=== PATIENT | male | born 1955 | race Caucasian/White ===

== ENCOUNTER 2017-08-18 00:37 | Emergency (ER) | payer MEDICAID ==
[2017-08-18 00:44] VITALS: BP 124/83
== END 2017-08-18 02:44 ==
LOC: ED 00:37
DX: R06.00 Dyspnea, unspecified (principal); Z53.21 Procedure and treatment not carried out due to patient leaving prior to being seen by health care provider

== ENCOUNTER 2017-10-26 08:35 | Outpatient (CLI) | payer MEDICAID ==
--- NOTE | 2017-10-26 10:33 | XRay Report ---
LEFT KNEE RADIOGRAPHS INDICATION: Left knee pain. COMPARISON: None similar. FINDINGS: AP, lateral and oblique left knee radiographs demonstrate intact articulation. Slight tibial spines and superior patellar articular pole spurring. Small suprapatellar effusion may also be present. CONCLUSION: Findings, as above. Please correlate. Thank you for the opportunity to participate in this patient's care.
--- NOTE | 2017-10-26 10:38 | XRay Report ---
CERVICAL SPINE RADIOGRAPHS INDICATION: Cervicalgia. COMPARISON: None similar. FINDINGS: AP, lateral and open-mouth views of the cervical spine, 3 images demonstrate dens superiorly obscured by overlying skull. Grossly symmetric lateral masses. Multiple radiopaque dental fillings. Demineralized bones. Clear imaged lung apices. Grossly intact craniocervical articulation on the lateral view with normal prevertebral soft tissues and airway. Visualization upto T1. Degenerative spurring noted from C4 inferiorly, greatest involving C5-C7. Moderate to severe C5-C6 and C6-C7 disc narrowing. Remainder disc heights and alignment grossly preserved. CONCLUSION: Cervical spondylosis, advanced from C5-C7 with few other findings, as above. Please correlate. Thank you for the opportunity to participate in this patient's care.
== END 2017-10-26 08:36 | disposition home or self-care (01) ==
LOC: XRAY 08:35
PROVIDERS: ATTEND Physical Medicine & Rehabilitation
DX: M47.892 Other spondylosis, cervical region (principal); M25.562 Pain in left knee; M25.462 Effusion, left knee; F17.210 Nicotine dependence, cigarettes, uncomplicated
CPT/HCPCS: 72040

== ENCOUNTER 2019-09-19 15:03 | Emergency (ER) | payer MEDICAID ==
[2019-09-19 15:10] VITALS: BP 139/67
[2019-09-19] MEDS ORDERED: HYDROcodone/ACETAMINOPHEN 5-325 MG TAB PO ONE (17:04)
[2019-09-19] MEDS ORDERED: CLINDAMYCIN 300 MG CAP PO ONE (17:04)
--- NOTE | 2019-09-19 17:20 | Emergency Department Report ---
Abscess Boil HPI - HPI Chief Complaint: Skin/Abscess/Foreign Body Stated Complaint: RT SIDE BITE Time Seen by Provider: 09/19/19 16:52 Duration: >1 Week Location: Chest Severity: Mild History: Yes Pain, No Fever, No Purulent Drainage, No Numbness, No Foreign Body, No Previous History, No Insect Bite (Unsure, possible) HPI: This 63-year-old male who presents the ED complaining of right-sided redness and swelling to his side of his chest for the past week. Patient states that he is noticed that is gotten bigger and redder in the past couple days. Patient states he is unsure if he got bit by something. Patient denies fever/chills/nausea vomiting Home Medications: Home Medications Medication Instructions Recorded Confirmed Last Taken Oxycodone HCl/Acetaminophen 1 tab PO Q6HR PRN 01/24/16 01/24/16 Unknown [OxyCODONE-Acetaminophen 10-325] Tizanidine HCl 1 tab PO DAILY 01/24/16 01/24/16 Unknown Previous Rx's Medication Instructions Recorded Last Taken Type traMADoL [Ultram] 50 mg PO Q6HR PRN #20 tablet 01/24/16 Unknown Rx Acetaminophen/Codeine [Tylenol 1 tab PO Q6H PRN #10 tab 09/19/19 Unknown Rx /Codeine # 3 tab] Clindamycin [Clindamycin CAP] 300 mg PO Q8H #21 cap 09/19/19 Unknown Rx Ibuprofen [Motrin 800 MG tab] 800 mg PO Q8HR PRN #30 tablet 09/19/19 Unknown Rx Sulfamethoxazole/Trimethoprim 1 each PO BID #20 tablet 09/19/19 Unknown Rx [Bactrim DS TAB] Allergies/Adverse Reactions: Allergies Allergy/AdvReac Type Severity Reaction Status Date / Time No Known Allergies Allergy Verified 04/10/15 13:15 ED Review of Systems ROS: Stated complaint: RT SIDE BITE Other details as noted in HPI Comment: All other systems reviewed and negative ED Past Medical Hx - Past Medical History Previous Medical History?: No Additional medical history: Chronic back pain - Surgical History Past Surgical History?: No Additional Surgical History: SUKI, Laser back surgery - Social History Smoking Status: Current Every Day Smoker Substance Use Type: None - Medications Home Medications: Home Medications Medication Instructions Recorded Confirmed Last Taken Type Oxycodone HCl/Acetaminophen 1 tab PO Q6HR PRN 01/24/16 01/24/16 Unknown History [OxyCODONE-Acetaminophen 10-325] Tizanidine HCl 1 tab PO DAILY 01/24/16 01/24/16 Unknown History traMADoL [Ultram] 50 mg PO Q6HR PRN #20 tablet 01/24/16 Unknown Rx Acetaminophen/Codeine [Tylenol 1 tab PO Q6H PRN #10 tab 09/19/19 Unknown Rx /Codeine # 3 tab] Clindamycin [Clindamycin CAP] 300 mg PO Q8H #21 cap 09/19/19 Unknown Rx Ibuprofen [Motrin 800 MG tab] 800 mg PO Q8HR PRN #30 tablet 09/19/19 Unknown Rx Sulfamethoxazole/Trimethoprim 1 each PO BID #20 tablet 09/19/19 Unknown Rx [Bactrim DS TAB] ED Abscess Boil Physical Exam - Exam General: Vital signs noted. No distress. Alert and acting appropriately. Size: 5 cm Exam: Yes Tenderness, Yes Surrounding Cellulites/Erythema, No Fluctuance, No Lymphangitis, No Crepitation, No Heart Murmur, No Normal Neurologic Exam, No Normal Circulation Exam: Area of erythema to the right lateral chest under the right arm about 10 cm from the armpit. I & D Note - I & D Note I & D Note: Not applicable. ED Course Vital Signs 09/19/19 15:08 Temperature 98 F Pulse Rate 85 Respiratory 18 Rate Blood Pressure 139/67 O2 Sat by Pulse 96 Oximetry Critical care attestation.: If time is entered above; I have spent that time in minutes in the direct care of this critically ill patient, excluding procedure time. ED Medical Decision Making - Medical Decision Making 64-year-old male who presents with cellulitis of the thorax wall Discussed warm compress 3 times a day Discussed antibiotic therapy Discussed pain medication as needed for pain and follow-up with primary care physician in 3 to 4 days. Vital signs are normal patient is in no acute distress I discussed with patient if symptoms worsen or new symptoms arise to return to ED immediately. ED Disposition Clinical Impression: Cellulitis of chest wall Disposition: DC-01 TO HOME OR SELFCARE Is pt being admited?: No Does the pt Need Aspirin: No Condition: Stable Instructions: Cellulitis (ED), Abscess (ED) Additional Instructions: Make sure to follow up with the primary care physician as discussed. Take all your medications as you've been prescribed. If you have any worsening symptoms or develop new symptoms please return to ED immediately. Prescriptions: Sulfamethoxazole/Trimethoprim [Bactrim DS TAB] 1 each PO BID #20 tablet Clindamycin [Clindamycin CAP] 300 mg PO Q8H #21 cap Ibuprofen [Motrin 800 MG tab] 800 mg PO Q8HR PRN #30 tablet PRN Reason: Pain Acetaminophen/Codeine [Tylenol /Codeine # 3 tab] 1 tab PO Q6H PRN #10 tab PRN Reason: Pain Referrals: AYDEN KOTHARI MD [Primary Care Provider] - 3-5 Days Forms: Accompanied Note, Work/School Release Form(ED) Time of Disposition: 17:55
== END 2019-09-19 18:06 | disposition home or self-care (01) ==
LOC: ED 15:03
DX: L03.313 Cellulitis of chest wall (principal); F17.200 Nicotine dependence, unspecified, uncomplicated; Z79.899 Other long term (current) drug therapy
CPT/HCPCS: 99282

== ENCOUNTER 2020-02-09 08:13 | Emergency (ER) | payer MEDICAID ==
[2020-02-09 08:20] VITALS: BP 129/83
[2020-02-09] MEDS ORDERED: oxyCODONE /ACETAMINOPHEN 5-325MG TAB PO ONE (11:08)
[2020-02-09] MEDS ORDERED: LIDOCAINE (1%) 10 MG/1 ML VIAL 20 ML MDV INFILTRATI ONE (11:08)
--- NOTE | 2020-02-09 11:10 | Emergency Department Report ---
ED General Adult HPI - General Chief complaint: Skin/Abscess/Foreign Body Stated complaint: SPIDER BITE/RT LEG Time Seen by Provider: 02/09/20 10:26 Source: patient Mode of arrival: Ambulatory Limitations: No Limitations - History of Present Illness Initial comments: 64-year-old male presents with complaints of right lower leg pain due to a spider bite x 3 days. Patient states he did feel something bite him when he was mowing the line and the area became itchy. He states redness developed later that day and the area has been painful since. He rates his pain as a 10/10 in severity and denies any fever/chills/sweats, numbness/tingling/weakness to his leg, or difficulty moving his leg. - Related Data Home Medications Medication Instructions Recorded Confirmed Last Taken Oxycodone HCl/Acetaminophen 1 tab PO Q6HR PRN 01/24/16 01/24/16 Unknown [OxyCODONE-Acetaminophen 10-325] Tizanidine HCl 1 tab PO DAILY 01/24/16 01/24/16 Unknown Previous Rx's Medication Instructions Recorded Last Taken Type traMADoL [Ultram] 50 mg PO Q6HR PRN #20 tablet 01/24/16 Unknown Rx Acetaminophen/Codeine [Tylenol 1 tab PO Q6H PRN #10 tab 09/19/19 Unknown Rx /Codeine # 3 tab] Sulfamethoxazole/Trimethoprim 1 each PO BID #20 tablet 09/19/19 Unknown Rx [Bactrim DS TAB] Acetaminophen/Codeine [Tylenol 1 tab PO Q6H PRN #8 tab 02/09/20 Unknown Rx /Codeine # 3 tab] Clindamycin [Clindamycin CAP] 300 mg PO Q6H 10 Days #40 cap 02/09/20 Unknown Rx Ibuprofen [Motrin 800 MG tab] 800 mg PO Q8HR PRN #21 tablet 02/09/20 Unknown Rx Mupirocin [Bactroban 2% OINT] 1 applic TP TID 7 Days #1 tube 02/09/20 Unknown Rx Allergies Allergy/AdvReac Type Severity Reaction Status Date / Time No Known Allergies Allergy Verified 04/10/15 13:15 ED Review of Systems ROS: Stated complaint: SPIDER BITE/RT LEG Other details as noted in HPI Constitutional: denies: chills, diaphoresis, fever, malaise, weakness ENT: denies: ear pain Respiratory: denies: shortness of breath Gastrointestinal: denies: nausea, vomiting Musculoskeletal: denies: joint swelling Skin: rash, lesions Neurological: denies: headache Hematological/Lymphatic: denies: swollen glands ED Past Medical Hx - Past Medical History Previous Medical History?: No Additional medical history: Chronic back pain - Surgical History Past Surgical History?: Yes Additional Surgical History: SUKI, Laser back surgery - Social History Smoking Status: Current Every Day Smoker Substance Use Type: None - Medications Home Medications: Home Medications Medication Instructions Recorded Confirmed Last Taken Type Oxycodone HCl/Acetaminophen 1 tab PO Q6HR PRN 01/24/16 01/24/16 Unknown History [OxyCODONE-Acetaminophen 10-325] Tizanidine HCl 1 tab PO DAILY 01/24/16 01/24/16 Unknown History traMADoL [Ultram] 50 mg PO Q6HR PRN #20 tablet 01/24/16 Unknown Rx Acetaminophen/Codeine [Tylenol 1 tab PO Q6H PRN #10 tab 09/19/19 Unknown Rx /Codeine # 3 tab] Sulfamethoxazole/Trimethoprim 1 each PO BID #20 tablet 09/19/19 Unknown Rx [Bactrim DS TAB] Acetaminophen/Codeine [Tylenol 1 tab PO Q6H PRN #8 tab 02/09/20 Unknown Rx /Codeine # 3 tab] Clindamycin [Clindamycin CAP] 300 mg PO Q6H 10 Days #40 cap 02/09/20 Unknown Rx Ibuprofen [Motrin 800 MG tab] 800 mg PO Q8HR PRN #21 tablet 02/09/20 Unknown Rx Mupirocin [Bactroban 2% OINT] 1 applic TP TID 7 Days #1 tube 02/09/20 Unknown Rx ED Physical Exam - General Limitations: No Limitations General appearance: alert, in no apparent distress - Head Head exam: Present: atraumatic, normocephalic - Eye Eye exam: Present: normal appearance - ENT ENT exam: Present: mucous membranes moist - Respiratory Respiratory exam: Absent: respiratory distress - Cardiovascular Cardiovascular Exam: Present: regular rate, normal rhythm - Extremities Exam Extremities exam: Present: full ROM, other (Round 4 cm area of erythema noted with central scabbing and lesion with minimal purulent drainage noted; area is tender to palpation) - Neurological Exam Neurological exam: Present: alert, oriented X3, normal gait. Absent: motor sensory deficit - Psychiatric Psychiatric exam: Present: normal affect, normal mood - Skin Skin exam: Present: warm, dry, erythema ED Course Vital Signs 02/09/20 02/09/20 08:19 10:47 Temperature 99.3 F Pulse Rate 105 H 76 Respiratory 18 16 Rate Blood Pressure 129/83 O2 Sat by Pulse 99 97 Oximetry - I & D Leg Type of Procedure: Simple Site: Right lower leg Blade Size: 11 I & D Procedure: betadine prep, sterile drapes applied, sterile dressing applied Progress: 8 cc of lidocaine 1% without epinephrine used to anesthetize area. Minimal bleeding occurred. Mild to moderate purulent drainage was obtained from wound and sent for culture. Patient tolerated procedure well without any immediate complications. ED Medical Decision Making - Medical Decision Making 64-year-old male presents with complaints of right lower leg pain due to a spider bite x 3 days. Patient states he did feel something bite him when he was mowing the line and the area became itchy. He states redness developed later that day and the area has been painful since. He rates his pain as a 10/10 in severity and denies any fever/chills/sweats, numbness/tingling/weakness to his leg, or difficulty moving his leg. Incision and drainage performed. Sample sent for wound culture. Patient given 1 dose of clindamycin and also given a prescription for home along with mupirocin. Patient to follow-up with his PCP in 2 days for wound recheck. His vitals are normal, he is well-appearing, he is stable for discharge home. Wound care and strict return precautions were discussed in detail with patient who verbalizes understanding. Critical care attestation.: If time is entered above; I have spent that time in minutes in the direct care of this critically ill patient, excluding procedure time. ED Disposition Clinical Impression: Cellulitis and abscess of right leg Disposition: DC-01 TO HOME OR SELFCARE Is pt being admited?: No Condition: Stable Instructions: Cellulitis (ED), Abscess Incision and Drainage (ED) Prescriptions: Mupirocin [Bactroban 2% OINT] 1 applic TP TID 7 Days #1 tube Clindamycin [Clindamycin CAP] 300 mg PO Q6H 10 Days #40 cap Ibuprofen [Motrin 800 MG tab] 800 mg PO Q8HR PRN #21 tablet PRN Reason: Pain Acetaminophen/Codeine [Tylenol /Codeine # 3 tab] 1 tab PO Q6H PRN #8 tab PRN Reason: Pain , Severe (7-10) Referrals: MARSHA WINKLER MD [Primary Care Provider] - 2-3 Days
[2020-02-09] MEDS ORDERED: CLINDAMYCIN 150 MG CAP PO ONE (11:30)
== END 2020-02-09 12:54 | disposition home or self-care (01) ==
LOC: ED 08:13
DX: L03.115 Cellulitis of right lower limb (principal); L02.415 Cutaneous abscess of right lower limb
CPT/HCPCS: 87076; 87116; 87186; 99282